=== PATIENT | female | born 1985 | race Caucasian/White ===

== ENCOUNTER 2016-11-14 13:27 | Emergency (ER) | payer OTHER ==
[2016-11-14 14:03] LABS: BASO % 0.3 % (0.1-1.2); EOS # 0.2 10_X3_uL (0.0-0.4); EOS % 2.4 % (0.7-5.8); GRAN # 4.3 10_X3_uL (1.6-6.1); GRAN % 61.7 % (34.0-71.1); HEMATOCRIT 35.6 % (34-45); HEMOGLOBIN 11.7 g/dL (11.2-15.7); LYMPH # 1.8 10_X3_uL (1.2-3.7); LYMPH % 25.2 % (19.3-51.7); MEAN CORPUSCULAR HEMOGLOBIN 29.1 pg (27.0-33.0); MEAN CORPUSCULAR HGB CONC 32.9 g/dL (32.0-36.0); MEAN CORPUSCULAR VOLUME 88.6 fL (79-95); MEAN PLATELET VOLUME 10.4 fl (7.5-11.5); MONO # 0.7 10_X3_uL (0.2-0.9); MONO % 10.4 % (4.7-12.5); PLATELET COUNT 283 x10_3/uL (182-369); RED BLOOD COUNT 4.02 x10_6/uL (3.9-5.2)
[2016-11-14 14:16] LABS: BLOOD UREA NITROGEN 7 mg/dL (7-18); CALCIUM 8.6 mg/dL (8.7-10.7); CARBON DIOXIDE 23 mmol/L (21-32); CREATININE 0.6 mg/dL (0.6-1.3); GLUCOSE,RANDOM 94 mg/dL (70-99); POTASSIUM 4.5 mmol/L (3.5-5.1); SODIUM 140 mmol/L (136-145)
[2016-11-14 15:57] LABS: URINE BILIRUBIN NEGATIVE (NEGATIVE); URINE BLOOD 3+ (NEGATIVE); URINE GLUCOSE (UA) NORMAL (NORMAL); URINE KETONE NEGATIVE (NEGATIVE); URINE LEUKOCYTE ESTERASE TRACE (NEGATIVE); URINE NITRATE NEGATIVE (NEGATIVE); URINE PROTEIN NEGATIVE (NEGATIVE)
[2016-11-14 16:10] LABS: URINE BACTERIA FEW (NONE SEEN); URINE SQUAMOUS EPITHELIAL CELL >20 /[HPF] (NONE SEEN); URINE WBC 0-5 /[HPF] (0-5)
== END 2016-11-14 17:35 | disposition home or self-care (01) ==
LOC: ER 13:27
PROVIDERS: General Practice
DX: N13.2 Hydronephrosis with renal and ureteral calculous obstruction (principal); N23 Unspecified renal colic; R10.31 Right lower quadrant pain; Z87.442 Personal history of urinary calculi
CPT/HCPCS: 36415; 74150; 80048; 81001; 81025; 85025; 96374; 96375; 96376; 99070; 99284; 99284-25; J1170